=== PATIENT | male | born 1980 | race African-American/Black ===

== ENCOUNTER 2019-04-30 01:10 | Emergency (ER) | payer MEDICAID ==
[~2019-04-30] VITALS: Ht 182.9 cm; Wt 92.0 kg
[2019-04-30 02:08] LABS: BASOPHILS % 0.9 % (0.0-2.0); EOSINOPHILS % 7.1 % (0.0-5.0); HEMATOCRIT. 45.6 % (42.0-52.0); HEMOGLOBIN. 15.8 g/dL (14.0-18.0); LYMPHOCYTES % 30.3 % (20.0-50.0); MEAN CORPUSCULAR VOLUME 86.5 fL (80.0-94.0); MEAN PLATELET VOLUME 8.2 fl (7.4-10.4); MONOCYTES % 7.6 % (2.0-8.0); NEUTROPHILS % 54.1 % (40.0-76.0); PLATELET 177 x1000/uL (130-400); RED BLOOD CELL COUNT 5.27 mill/uL (4.7-6.1); RED CELL DISTRIBUTION WIDTH 13.4 % (11.6-14.6)
[2019-04-30 02:14] LABS: CHLORIDE 107 mEq/L (98-107)
[2019-04-30 03:09] VITALS: BP 131/81
== END 2019-04-30 03:28 | disposition home or self-care (01) ==
LOC: ER 01:10
DX: G40.909 Epilepsy, unspecified, not intractable, without status epilepticus (principal); G47.62 Sleep related leg cramps; Z98.890 Other specified postprocedural states
CPT/HCPCS: 36415; 99283

== ENCOUNTER 2019-08-11 04:03 | Emergency (ER) | payer MEDICAID ==
[~2019-08-11] VITALS: Ht 185.4 cm; Wt 87.0 kg
[2019-08-11] MEDS ORDERED: LEVETIRACETAM 500MG/5ML CUP PO ONE (04:30)
[2019-08-11] MEDS ORDERED: ONDANSETRON 4MG ODT PO ONE (05:30)
[2019-08-11 06:37] VITALS: BP 126/84
== END 2019-08-11 06:36 | disposition home or self-care (01) ==
LOC: ER 04:03
DX: G40.909 Epilepsy, unspecified, not intractable, without status epilepticus (principal)
CPT/HCPCS: 82962; 99283; Q0162